=== PATIENT | female | born 1990 | race Two or more races ===

== ENCOUNTER 2019-11-04 12:35 | Emergency (ER) | payer OTHER ==
[~2019-11-04] VITALS: Ht 157.5 cm; Wt 68.0 kg
--- NOTE | 2019-11-04 12:50 | NUR ---
PT ED BED 11. ENDORSES L SIDED FACIAL NUMBNESS AND L SIDED WEAKNESS WORST TO LUE W/ TINGGLING SENSATION TO FINGERTIPS. PT STATES ONSET SYMPTOMS WAS AT 1830 LAST NIGHT AND GOT WORST UPON WAKING UP THIS MORNING. NO SLURRING AND FACIAL DROOP NOTED. PLACED ON MONITOR. VSS. AWAITING MD KIM.
--- NOTE | 2019-11-04 13:10 | NUR ---
MELINDAP PA AT BEDSIDE FOR EVAL.
[2019-11-04 13:16] LABS: BASOPHILS # (AUTO) 0.1 /CMM (0.0-0.2); BASOPHILS % (AUTO) 1.2 % (0.0-2.0); EOSINOPHILS % (AUTO) 3.6 % (0.0-6.0); HEMATOCRIT 42 % (33-45); HEMOGLOBIN 14.2 g/dL (11.5-14.8); LYMPHOCYTES # (AUTO) 2.2 /CMM (0.8-4.8); LYMPHOCYTES % (AUTO) 27.5 % (20.0-44.0); MEAN CORPUSCULAR HGB CONC 34 g/dl (31.0-36.0); MEAN CORPUSCULAR VOLUME 94 fL (82-100); MONOCYTES # (AUTO) 0.4 /CMM (0.1-1.30); NEUTROPHILS # (AUTO) 5.1 /CMM (1.8-8.9); NEUTROPHILS % (AUTO) 62.7 % (43.0-81.0); PLATELET COUNT (AUTO) 317 /CMM (150-450); RED BLOOD CELL COUNT(AUTO) 4.45 MIL/uL (4.0-5.2); WHITE BLOOD COUNT (AUTO) 8.1 K/uL (4.3-11.0)
[2019-11-04 13:28] LABS: CALCIUM, SERUM 9.1 mg/dL (8.5-10.1); CARBON DIOXIDE 26 mmol/L (21-32); CHLORIDE 105 mmol/L (98-107); CREATININE 0.8 mg/dL (0.6-1.3); GLUCOSE 94 mg/dL (74-106); POTASSIUM 3.8 mmol/L (3.5-5.1); SODIUM SERUM 140 mmol/L (136-145); UREA NITROGEN, BLOOD 11 mg/dL (7-18)
[2019-11-04 13:47] LABS: APPEARANCE,URINE Clear (CLEAR); BILIRUBIN,URINE Negative (NEGATIVE); BLOOD, URINE Negative Ery/uL (NEGATIVE); COLOR,URINE Yellow (YELLOW); KETONES,URINE Negative (NEGATIVE); LEUKOCYTE ESTERASE ,URINE Negative (NEGATIVE); NITRITE, URINE Negative (NEGATIVE); PROTEIN,URINE Negative (NEGATIVE); UGLUCOSE Negative (NEGATIVE); UROBILINOGEN,URINE 0.2 EU/dL (0.2)
--- NOTE | 2019-11-04 13:58 | NUR ---
RADIOLOGY AT BEDSIDE FOR CHEST XRAY
[2019-11-04] MEDS ORDERED: IOHEXOL-350 100 ML VIAL IV ONE (14:04)
[2019-11-04] MEDS ORDERED: CT SWABBABLE VALVE TRANS SET 1 EA INFUS.SET MC ONE (14:04)
[2019-11-04] MEDS ORDERED: IV NS 0.9% 250 ML IV ONE (14:04)
--- NOTE | 2019-11-04 17:24 | NUR ---
CALLED [facility] [phone] // ELIE MARTINEZ WILL CALL US BACK.
[2019-11-04] MEDS ORDERED: ASPIRIN 325 MG TABLET PO ONE (17:30)
--- NOTE | 2019-11-04 17:36 | NUR ---
DR. NOVAK FROM [facility] CALLED BACK
[2019-11-04] MEDS ORDERED: ASPIRIN 325 MG TABLET ONE (17:40)
--- NOTE | 2019-11-04 17:57 | NUR ---
[facility] CALLED. [phone] PT GOING TO [facility] ACCEPTING IS KEVIN Swain CALL REPORT TO [phone] [facility] WILL ARRIVE AT 1845.
[2019-11-04 18:08] VITALS: BP 129/83
--- NOTE | 2019-11-04 18:13 | NUR ---
REPORT GIVEN TO LILIA BOLAÑOS AT [facility]. AWAITING TRANSFER AMBULANCE.
--- NOTE | 2019-11-04 18:33 | NUR ---
TEXTED DR. JONES FOR MRI APPROVAL
[2019-11-04 18:39] LABS: CHOLESTEROL 176 mg/dL (<200); HDL CHOLESTEROL 55 mg/dL (40-60); LDL 109 mg/dL (0-99); TRIGLYCERIDES 117 mg/dL (30-150)
--- NOTE | 2019-11-04 19:14 | NUR ---
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
--- NOTE | 2019-11-04 19:29 | NUR ---
REPORT GIVEN TO TRANSPORT TEAM FOR [facility]. AND TRANSFER RESPONSIBILITIES.
== END 2019-11-04 19:32 | disposition short-term general hospital (02) ==
LOC: ER 12:35
DX: R20.2 Paresthesia of skin (principal); G43.909 Migraine, unspecified, not intractable, without status migrainosus; J45.909 Unspecified asthma, uncomplicated; W22.8XXA Striking against or struck by other objects, initial encounter; Y93.89 Activity, other specified; Y92.89 Other specified places as the place of occurrence of the external cause; Y99.8 Other external cause status
CPT/HCPCS: 36415; 70496; 71045; 80048; 80061; 80305; 81001; 84484; 84703; 85025; 85730; 93005; 99285; J7050; Q9967; 81000-TC